=== PATIENT | female | born 1975 | race Caucasian/White ===

== ENCOUNTER 2019-01-25 23:05 | Emergency (ER) | payer BC ==
--- NOTE | 2019-01-26 00:39 | EDM.PDOC ---
ED HPI GENERAL MEDICAL PROBLEM - General Chief Complaint: Abdominal Pain Stated Complaint: ADM PAIN Time Seen by Provider: 01/25/19 23:40 Source of Information: Reports: Patient History Limitations: Reports: No Limitations - History of Present Illness INITIAL COMMENTS - FREE TEXT/NARRATIVE: pt arrived with pain in her lower abdoman. She is nauseated but has not vomited. She had soft stools today but not diarrhea. Onset: Today, Gradual, Other (pt has not felt well all day but tonight she developed the pain in the lower abdoman. 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 ) Duration: Hour(s): Location: Reports: Abdomen Quality: Reports: Other (pain is crampy in nature. ) Associated Symptoms: Reports: Other (pt has nausea but has not vomited. ) Lower Abdomen Pain Score (Numeric/FACES): 6 - Related Data Allergies Allergy/AdvReac Type Severity Reaction Status Date / Time Sulfa (Sulfonamide Allergy Hives Verified 01/25/19 23:21 Antibiotics) Home Meds: Home Meds Gabapentin [Neurontin] 600 mg PO DAILY 01/25/19 [History] Mirabegron [Myrbetriq] 50 mg PO DAILY 01/25/19 [History] buPROPion [buPROPion XL] 150 mg PO BEDTIME 01/25/19 [History] Past Medical History HEENT History: Reports: Impaired Vision Genitourinary History: Reports: Renal Calculus B[employer]ER History: Reports: , Spontaneous Psychiatric History: Reports: Depression Endocrine/Metabolic History: Reports: Obesity/BMI 30+ Oncologic (Cancer) History: Reports: Other (See Below) Other Oncologic History: kidney - Infectious Disease History Infectious Disease History: Reports: Chicken Pox - Past Surgical History GI Surgical History: Reports: Appendectomy, Cholecystectomy Female Surgical History: Reports: Tubal Ligation, Other (See Below) Other Female Surgeries/Procedures: partial nephrectomy 2010 Musculoskeletal Surgical History: Reports: Other (See Below) Other Musculoskeletal Surgeries/Procedures:: hammer toe Social & Family History - Tobacco Use Smoking Status *Q: Never Smoker Second Hand Smoke Exposure: No - Caffeine Use Caffeine Use: Reports: Coffee - Alcohol Use Days Per Week of Alcohol Use: 0 - Recreational Drug Use Recreational Drug Use: No ED ROS GENERAL - Review of Systems Review Of Systems: See Below Constitutional: Reports: Decreased Appetite HEENT: Reports: No Symptoms Respiratory: Reports: No Symptoms Endocrine: Reports: No Symptoms GI/Abdominal: Reports: Abdominal Pain, Nausea, Other ( crampy pain) : Reports: No Symptoms Musculoskeletal: Reports: No Symptoms ED EXAM, GI/ABD - Physical Exam Exam: See Below Text/Narrative:: pt arrived with lower abdomanal pain. She has had 2 soft stools today. She has been nauseated. Exam Limited By: No Limitations General Appearance: Alert, Moderate Distress Ears: Normal TMs Nose: Normal Inspection Throat/Mouth: Normal Inspection Head: Atraumatic Neck: Normal Inspection Respiratory/Chest: No Respiratory Distress Cardiovascular: Regular Rate, Rhythm GI/Abdominal Exam: Tender, Other (pt has tenderness accross her lower abdoman. ) (Female) Exam: Deferred Rectal (Female) Exam: Deferred Extremities: Normal Inspection Neurological: Alert, Oriented, Normal Cognition Course - Vital Signs Last Recorded V/S: Last Vital Signs Temp 36.6 C 01/25/19 23:30 Pulse 89 01/25/19 23:30 Resp 16 01/25/19 23:30 BP 127/54 L 01/25/19 23:30 Pulse Ox 97 01/25/19 23:30 - Orders/Labs/Meds Orders: Active Orders 24 hr Category Date Time Status Sodium Chloride 0.9% [Normal Saline] 1,000 ml Med 01/26/19 01:00 Active IV ASDIRECTED Medication Orders Sodium Chloride (Normal Saline) 1,000 mls @ 999 mls/hr IV ASDIRECTED CASSI Last Admin: 01/26/19 01:03 Dose: 999 mls/hr Labs: Laboratory Tests 01/26/19 01/26/19 01/26/19 Range/Units 00:04 00:06 00:06 WBC 10.6 (4.5-11.0) K/uL RBC 4.82 (3.30-5.50) M/uL Hgb 11.9 L (12.0-15.0) g/dL Hct 37.8 (36.0-48.0) % MCV 78 L (80-98) fL MCH 25 L (27-31) pg MCHC 32 (32-36) % Plt Count 340 (150-400) K/uL Neut % (Auto) 75 H (36-66) % Lymph % (Auto) 16 L (24-44) % [place] % (Auto) 6 (2-6) % Eos % (Auto) 3 (2-4) % Baso % (Auto) 0 (0-1) % Sodium (140-148) mmol/L Potassium (3.6-5.2) mmol/L Chloride (100-108) mmol/L Carbon Dioxide (21-32) mmol/L Anion Gap (5.0-14.0) mmol/L BUN (7-18) mg/dL Creatinine (0.6-1.0) mg/dL Est Cr Clr Drug Dosing mL/min Estimated GFR (MDRD) (>60) Glucose (74-106) mg/dL Calcium (8.5-10.1) mg/dL Total Bilirubin (0.2-1.0) mg/dL AST (15-37) U/L ALT (12-78) U/L Alkaline Phosphatase (46-116) U/L C-Reactive Protein 1.54 H (0.0-0.3) mg/dL Total Protein (6.4-8.2) g/dL Albumin (3.4-5.0) g/dL Globulin (2.3-3.5) g/dL Albumin/Globulin Ratio (1.2-2.2) Urine Color Yellow (YELLOW) Urine Appearance Clear (CLEAR) Urine pH 5.5 (5.0-8.0) Ur Specific [place] 1.025 (1.008-1.030) Urine Protein Negative (NEGATIVE) mg/dL Urine Glucose (UA) Normal (NEGATIVE) mg/dL Urine Ketones Negative (NEGATIVE) mg/dL Urine Occult Blood Negative (NEGATIVE) Urine Nitrite Negative (NEGATIVE) Urine Bilirubin Negative (NEGATIVE) Urine Urobilinogen Normal (0.2-1.0) EU/dL Ur Leukocyte Esterase Negative (NEGATIVE) Urine RBC 0-5 (0-5) Urine WBC 0-5 (0-5) Ur Epithelial Cells Few Amorphous Sediment Few Urine Bacteria Rare Urine Mucus Few 01/26/19 Range/Units 00:06 WBC (4.5-11.0) K/uL RBC (3.30-5.50) M/uL Hgb (12.0-15.0) g/dL Hct (36.0-48.0) % MCV (80-98) fL MCH (27-31) pg MCHC (32-36) % Plt Count (150-400) K/uL Neut % (Auto) (36-66) % Lymph % (Auto) (24-44) % [place] % (Auto) (2-6) % Eos % (Auto) (2-4) % Baso % (Auto) (0-1) % Sodium 139 L (140-148) mmol/L Potassium 3.5 L (3.6-5.2) mmol/L Chloride 106 (100-108) mmol/L Carbon Dioxide 27 (21-32) mmol/L Anion Gap 9.5 (5.0-14.0) mmol/L BUN 14 (7-18) mg/dL Creatinine 1.0 (0.6-1.0) mg/dL Est Cr Clr Drug Dosing 70.91 mL/min Estimated GFR (MDRD) 60 (>60) Glucose 113 H (74-106) mg/dL Calcium 8.2 L (8.5-10.1) mg/dL Total Bilirubin 0.2 (0.2-1.0) mg/dL AST 20 (15-37) U/L ALT 34 (12-78) U/L Alkaline Phosphatase 74 (46-116) U/L C-Reactive Protein (0.0-0.3) mg/dL Total Protein 6.8 (6.4-8.2) g/dL Albumin 3.2 L (3.4-5.0) g/dL Globulin 3.6 H (2.3-3.5) g/dL Albumin/Globulin Ratio 0.9 L (1.2-2.2) Urine Color (YELLOW) Urine Appearance (CLEAR) Urine pH (5.0-8.0) Ur Specific [place] (1.008-1.030) Urine Protein (NEGATIVE) mg/dL Urine Glucose (UA) (NEGATIVE) mg/dL Urine Ketones (NEGATIVE) mg/dL Urine Occult Blood (NEGATIVE) Urine Nitrite (NEGATIVE) Urine Bilirubin (NEGATIVE) Urine Urobilinogen (0.2-1.0) EU/dL Ur Leukocyte Esterase (NEGATIVE) Urine RBC (0-5) Urine WBC (0-5) Ur Epithelial Cells Amorphous Sediment Urine Bacteria Urine Mucus Meds: Medications Generic Name Dose Route Start Last Admin Trade Name Freq PRN Reason Stop Dose Admin Sodium Chloride 1,000 mls @ 999 mls/hr 01/26/19 01:00 01/26/19 01:03 Normal Saline IV 999 mls/hr ASDIRECTED CASSI Administration Discontinued Medications Generic Name Dose Route Start Last Admin Trade Name Dot PRN Reason Stop Dose Admin Sodium Chloride 85 mls @ 4 mls/sec 01/26/19 01:24 01/26/19 01:35 Normal Saline IV 01/26/19 01:25 4 mls/sec ASDIRECTED STA Administration Iopamidol 150 ml 01/26/19 01:24 01/26/19 01:35 Isovue-300 (61%) IV 01/26/19 01:25 150 ml . DIRECTED STA Administration Ondansetron HCl 4 mg 01/26/19 01:56 01/26/19 02:04 Zofran IVPUSH 01/26/19 01:57 4 mg ONETIME ONE Administration - Re-Assessments/Exams Free Text/Narrative Re-Assessment/Exam: 01/26/19 02:03 pt has a history of ca of the left kidney. She has crampy lower abdomanal pain with tenderness to palpation. Her wbc is not markedly elevated. She has a elevated crp. Her urine is clear. 01/26/19 02:11 cat scan of the abdoman showed a possible colitis in the cecum. She has been on recent antibiotic therapy/ Departure - Departure Time of Disposition: 02:12 Disposition: Home, Self-Care 01 Condition: Fair Clinical Impression: Colitis - Discharge Information Referrals: PCP,None [Primary Care Provider] - Forms: ED Department Discharge Care Plan Goals: push fluids, use probiotic and alot of yogurt. If she should develop diarrhea the stool should be checked. zoforan 4mg subling q6h as needed for nausea, norco 5/325 q6h prn for pain. #6 rtc if pain should get alot worse. See regular Doctor the first of the week regarding the colitis and the umbilical redness. - My Orders Last 24 Hours: My Active Orders 01/26/19 01:00 Sodium Chloride 0.9% [Normal Saline] 1,000 ml IV ASDIRECTED - Assessment/Plan Last 24 Hours: My Active Orders 01/26/19 01:00 Sodium Chloride 0.9% [Normal Saline] 1,000 ml IV ASDIRECTED
[2019-01-26] MEDS ORDERED: Sodium Chloride 0.9% 1,000 ML IV SCH (01:00)
[2019-01-26] MEDS ORDERED: Iopamidol 612 MG/ML 150 ML Bottle IV STA (01:24)
[2019-01-26] MEDS ORDERED: Ondansetron 4 MG/2 ML SDV IVPUSH ONE (01:56)
--- NOTE | 2019-01-26 02:01 | CRLCT ---
INDICATION: Lower abdominal pain TECHNIQUE: CT abdomen and pelvis acquired with IV contrast. COMPARISON: None FINDINGS: Lower chest: Unremarkable. Liver: Unremarkable. Spleen: Unremarkable. Pancreas: Unremarkable. Gallbladder and bile ducts: S/p cholecystectomy. Adrenal glands: Unremarkable. Kidneys: Likely postsurgical changes in the lower pole of the left kidney. Both kidneys are otherwise normal in appearance. GI tract: Very mild fat stranding around the cecum. There are some shotty lymph nodes in the right lower quadrant. Questionable thickening of the cecal pr[place]tt. Appendix is surgically absent. Vascular structures: Unremarkable. Lymph nodes: Unremarkable. Miscellaneous: Unremarkable. No free air or significant free fluid. Pelvic Organs: Bilateral tubal ligation clips. Bones: Unremarkable for age. IMPRESSION: Findings concerning for colitis involving the cecum. Correlate with pain or tenderness in this region. Status post cholecystectomy, appendectomy, and left renal surgery. Please note that all CT scans at this facility use dose modulation, iterative reconstruction, and/or weight-based dosing when appropriate to reduce radiation dose to as low as reasonably achievable. Dictated by Maria Isabel Bowen MD @ Jan 26 2019 2:00AM Signed by Dr. Maria Isabel Bowen @ Jan 26 2019 2:00AM
== END 2019-01-26 02:29 | disposition home or self-care (01) ==
LOC: JP.ED 23:05
DX: K52.9 Noninfective gastroenteritis and colitis, unspecified (principal); F32.9 Major depressive disorder, single episode, unspecified; Z88.2 Allergy status to sulfonamides; Z79.899 Other long term (current) drug therapy; Z87.442 Personal history of urinary calculi; Z85.528 Personal history of other malignant neoplasm of kidney
CPT/HCPCS: 36415; 74177; 80053; 81001; 85025; 86140; 96361; 96374; 99284; J2405; J7030

== ENCOUNTER 2020-03-18 07:15 | Day surgery (SDC) | payer MEDICAID ==
[2020-03-18] MEDS ORDERED: Dextrose 5%-Lactated Ringers 1,000 ML IV SCH (07:45)
[2020-03-18] MEDS ORDERED: fentaNYL 100 MCG/2 ML SDV ONE (08:01)
[2020-03-18] MEDS ORDERED: Propofol 200 MG/20 ML SDV ONE (08:01)
[2020-03-18] MEDS ORDERED: Midazolam 1 MG/ML 2 ML SDV ONE (08:01)
[2020-03-18] MEDS ORDERED: Glycopyrrolate 0.2 MG/ML 2 ML SDV IVPUSH ONE (08:30)
--- NOTE | 2020-03-24 14:07 | OR ---
DATE OF PROCEDURE: 03/18/2020 SURGEON: Edgar Reyes MD PREOPERATIVE DIAGNOSIS: Gastroesophageal reflux disease. POSTOPERATIVE DIAGNOSIS: Gastroesophageal reflux disease associated with a moderate (3 cm) hiatal hernia with minimal inflammation, but with possible Null's esophagus. OPERATIVE PROCEDURE: Esophagogastroduodenoscopy with: 1. Biopsy of esophagogastric junction for histologic evaluation. 2. Biopsies of antrum for CLOtest. ANESTHESIA: IV sedation. INDICATION FOR PROCEDURE: This is a 45-year-old female presenting with some ongoing history of gastroesophageal reflux disease with symptoms presently fairly well controlled with omeprazole 20 mg taken roughly every 3 days. With this, she has relatively minimal symptoms screening for problems such as Null's esophagus, the patient is to undergo an upper GI endoscopy with biopsies as indicated. Potential risks including bleeding and perforation were discussed, and the patient wishes to proceed. DETAILS OF PROCEDURE: The patient was taken to the operating room, placed in a left lateral decubitus position. IV sedation was administered, after which the upper GI endoscope was passed orally through the length of the esophagus, into stomach with retroflexion view of the fundus, thereafter through the pyloric channel and into the proximal duodenum. Findings included normal hypopharynx, larynx, upper esophageal sphincter, and esophageal body. At the EG junction, the patient was noted to have a roughly 3 cm hiatal hernia. This was at this point associated with minimal inflammation. There was however some upward extension of the gastroesophageal junction mucosal line with some columnar mucosa appearing above that level as well as some small islands of columnar-type mucosa above the esophagogastric junction. No stricturing, plaquing, or signs of neoplasia were seen. The remainder of the gastric and duodenal exams were unremarkable. At this point, biopsies were obtained from the antrum and sent for CLOtest to establish the patient's H. pylori status. Multiple biopsies were obtained from the area of the esophagogastric junction focusing on the areas of columnar mucosa. Minimal bleeding from the biopsy sites was seen and the procedure then concluded. At this point, the patient's symptoms appeared to be fairly well controlled with relatively minimal medical management that certainly can continue at this point. We will call the patient. If there is evidence of Null's esophagus, then she will be instructed to begin ongoing followup endoscopic surveillance of that issue. Edgar Reyes MD /[id number]
== END 2020-03-18 09:45 | disposition home or self-care (01) ==
LOC: JP.SDS 07:15
PROVIDERS: ATTEND Surgery
DX: K21.00 Gastro-esophageal reflux disease with esophagitis, without bleeding (principal); K44.9 Diaphragmatic hernia without obstruction or gangrene; F32.9 Major depressive disorder, single episode, unspecified; Z88.2 Allergy status to sulfonamides; E66.01 Morbid (severe) obesity due to excess calories; Z68.41 Body mass index [BMI] 40.0-44.9, adult
CPT/HCPCS: 43239; 87081; 88305; J2250; J2704; J3010; J3490; J7121

== ENCOUNTER 2020-09-29 07:33 | Day surgery (SDC) | payer MEDICAID ==
[~2020-09-29 07:33] MED LIST: Midazolam 1 MG/ML 2 ML SDV ONE; Propofol 200 MG/20 ML SDV ONE; fentaNYL 100 MCG/2 ML SDV ONE
[2020-09-29] MEDS: Sodium Chloride 0.9% 1,000 ML IV SCH (08:06)
--- NOTE | 2020-09-29 11:58 | OR ---
DATE OF PROCEDURE: 09/29/2020 SURGEON: Garland Smith MD PROCEDURE: Colonoscopy. FINDINGS: Mild inflammation. PATHOLOGY: Random biopsies of the ascending, descending, sigmoid, and rectum due to concern from primary care of colitis. RISKS: Risks, benefits, alternatives, and limitations including, but not limited to, infection, bleeding, perforation, false positives, false negatives were explained to the patient who wished to proceed. PROCEDURE IN DETAIL: The patient was placed in left lateral decubitus position. Digital rectal exam was performed without abnormality. Scope was introduced and advanced atraumatically to ileocecal valve. A photo was taken. Scope was brought back to the ascending, transverse, descending colon, and retroflexed. The patient has very mild inflammation in colon. No gross or obvious colitis. No abnormalities on retroflexion. No old or new blood. No masses. No polyps. No diverticulosis. No abnormalities on retroflexion. Greater than 90% luminal surface could be seen. Greater than 8 minutes was spent removing the scope. The patient tolerated the procedure well. Garland Smith MD /[id number]
== END 2020-09-29 10:46 | disposition home or self-care (01) ==
LOC: JP.SDS 07:33
PROVIDERS: ATTEND Surgery
DX: K52.9 Noninfective gastroenteritis and colitis, unspecified (principal); Z88.2 Allergy status to sulfonamides; Z85.528 Personal history of other malignant neoplasm of kidney
CPT/HCPCS: 45380; J2250; J2704; J3010; J7030

== ENCOUNTER 2023-02-19 14:24 | Emergency (ER) | payer MEDICAID ==
[2023-02-19] MEDS ORDERED: Acetaminophen/HYDROcodone 325-5 MG Tab PO ONE (17:14)
== END 2023-02-19 18:43 | disposition home or self-care (01) ==
LOC: JP.ED 14:24
DX: M23.92 Unspecified internal derangement of left knee (principal); E66.9 Obesity, unspecified; Z86.16 Personal history of COVID-19; Z79.899 Other long term (current) drug therapy; Z88.2 Allergy status to sulfonamides; Z68.37 Body mass index [BMI] 37.0-37.9, adult
CPT/HCPCS: 73564; 99283; A9270

== ENCOUNTER 2024-12-19 08:36 | Day surgery (SDC) | payer MEDICAID ==
[2024-12-19] MEDS: Lactated Ringers 1,000 ML IV SCH (09:01)
[2024-12-19] MEDS ORDERED: Midazolam 1 MG/ML 2 ML SDV ONE (09:42)
[2024-12-19] MEDS ORDERED: fentaNYL 100 MCG/2 ML SDV ONE (09:42)
[2024-12-19] MEDS ORDERED: Propofol 200 MG/20 ML SDV ONE (09:43)
== END 2024-12-19 12:01 | disposition home or self-care (01) ==
LOC: JP.SDS 08:36
PROVIDERS: ATTEND Surgery
DX: K20.90 Esophagitis, unspecified without bleeding (principal); K22.89 Other specified disease of esophagus; K44.9 Diaphragmatic hernia without obstruction or gangrene; Z88.6 Allergy status to analgesic agent; Z88.2 Allergy status to sulfonamides
CPT/HCPCS: 43239; 88305; J2250; J2704; J3010; J7120; 00731-QZ